=== PATIENT | male | born 1990 | race African-American/Black ===

== ENCOUNTER 2017-03-27 01:02 | Emergency (ER) | payer OTHER ==
[~2017-03-27] VITALS: Ht 167.6 cm; Wt 63.5 kg
[2017-03-27] MEDS ORDERED: PHENERGAN 25 MG25 M1 PO (02:15)
[2017-03-27] MEDS ORDERED: AMOXICILLIN875 MG PO (02:15)
== END 2017-03-27 03:34 | disposition home or self-care (01) ==
LOC: ER 01:02
DX: K29.70 Gastritis, unspecified, without bleeding (principal)

== ENCOUNTER 2019-05-02 20:37 | Emergency (ER) | payer OTHER ==
[~2019-05-02] VITALS: Ht 167.6 cm; Wt 60.8 kg
[~2019-05-02 20:37] MED LIST: AMOXICILLIN875 MG PO; PHENERGAN 25 MG25 M1 PO
[2019-05-02] MEDS ORDERED: NOHOMEMEDICATIONS (21:01)
[2019-05-02] MEDS ORDERED: FLONASE 0.05%50 MCG NARES (21:28)
[2019-05-02 21:35] VITALS: BP 116/82
== END 2019-05-02 21:30 | disposition home or self-care (01) ==
LOC: ER 20:37
DX: R09.81 Nasal congestion (principal); R05 Cough; R06.7 Sneezing